=== PATIENT | female | born 1960 | race Caucasian/White ===

== ENCOUNTER 2024-10-31 09:09 | Outpatient (AMB) | payer OTHER, SELFPAY | END 2024-10-31 14:20 | disposition home or self-care (01) | LOC: HO.HMGAL 09:09 | PROVIDERS: Visit Provider Registered Nurse Emergency | DX: J30.89 Other allergic rhinitis (principal) | CPT/HCPCS: 95117; 95165 ==

== ENCOUNTER 2024-11-14 16:11 | Outpatient (AMB) | payer OTHER, SELFPAY | END 2024-11-14 16:12 | disposition home or self-care (01) | LOC: HO.HMGAL 16:11 | PROVIDERS: Visit Provider Registered Nurse Emergency | DX: J30.89 Other allergic rhinitis (principal) | CPT/HCPCS: 95117; 95165 ==

== ENCOUNTER 2024-11-28 16:27 | Outpatient (AMB) | payer OTHER, SELFPAY | END 2024-11-28 16:29 | disposition home or self-care (01) | LOC: HO.HMGAL 16:27 | PROVIDERS: PCP Nurse Practitioner Family; Visit Provider Registered Nurse Emergency | DX: J30.89 Other allergic rhinitis (principal) | CPT/HCPCS: 95117; 95165 ==

== ENCOUNTER 2024-12-12 16:05 | Outpatient (AMB) | payer OTHER, SELFPAY | END 2024-12-12 16:06 | disposition home or self-care (01) | LOC: HO.HMGAL 16:05 | PROVIDERS: PCP Nurse Practitioner Family; Visit Provider Registered Nurse Emergency | DX: J30.89 Other allergic rhinitis (principal) | CPT/HCPCS: 95117; 95165 ==

== ENCOUNTER 2025-01-02 14:42 | Outpatient (AMB) | payer OTHER, SELFPAY | END 2025-01-02 14:43 | disposition home or self-care (01) | LOC: HO.HMGAL 14:42 | PROVIDERS: PCP Nurse Practitioner Family; Visit Provider Registered Nurse Emergency | DX: J30.89 Other allergic rhinitis (principal) | CPT/HCPCS: 95117; 95165 ==

== ENCOUNTER 2025-01-16 16:13 | Outpatient (AMB) | payer OTHER, SELFPAY | END 2025-01-16 16:14 | disposition home or self-care (01) | LOC: HO.HMGAL 16:13 | PROVIDERS: PCP Nurse Practitioner Family; Visit Provider Registered Nurse Emergency | DX: J30.89 Other allergic rhinitis (principal) | CPT/HCPCS: 95117; 95165 ==

== ENCOUNTER 2025-02-01 14:20 | Outpatient (AMB) | payer OTHER, SELFPAY | END 2025-02-01 14:20 | disposition home or self-care (01) | LOC: HO.HMGAL 14:20 | PROVIDERS: PCP Nurse Practitioner Family; Visit Provider Registered Nurse Emergency | DX: J30.89 Other allergic rhinitis (principal) | CPT/HCPCS: 95117; 95165 ==

== ENCOUNTER 2025-02-15 16:07 | Outpatient (AMB) | payer OTHER, SELFPAY | END 2025-02-15 16:07 | disposition home or self-care (01) | LOC: HO.HMGAL 16:07 | PROVIDERS: PCP Nurse Practitioner Family; Visit Provider Registered Nurse Emergency | DX: J30.89 Other allergic rhinitis (principal) | CPT/HCPCS: 95117; 95165 ==

== ENCOUNTER 2025-02-27 16:27 | Outpatient (AMB) | payer OTHER, SELFPAY | END 2025-02-27 16:27 | disposition home or self-care (01) | LOC: HO.HMGAL 16:27 | PROVIDERS: PCP Nurse Practitioner Family; Visit Provider Registered Nurse Emergency | DX: J30.89 Other allergic rhinitis (principal) | CPT/HCPCS: 95117; 95165 ==